=== PATIENT | female | born 2000 | race Caucasian/White ===

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

== ENCOUNTER → 2022-01-01 | Outpatient (CLI) | payer OTHER ==
--- NOTE | 2022-01-01 08:44 | US ---
EXAMINATION TYPE: US gallbladder DATE OF EXAM: 01/01/2022 COMPARISON: NONE CLINICAL HISTORY: R112 NAUSEA WITH VOMITING. EXAM MEASUREMENTS: Liver Length: 14.2 cm Gallbladder Wall: 0.2 cm CBD: 0.5 cm Right Kidney: 12.3 x 3.7 x 5.2 cm Pancreas: Tail obscured by overlying bowel gas, appears wnl as seen Liver: wnl Gallbladder: wnl Evidence for sonographic Arteaga's sign: No CBD: wnl Right Kidney: measures slightly large IMPRESSION: Within normal limits
--- NOTE | 2022-01-01 08:47 | US ---
EXAMINATION TYPE: US thyroid st tissue head/neck DATE OF EXAM: 01/01/2022 COMPARISON: NONE CLINICAL HISTORY: [id number] THYROTOXICOSIS. GLAND SIZE: Right Lobe: 7.2 x 1.8 x 2.2 cm Overall Parenchyma: heterogenous Left Lobe: 6.0 x 1.8 x 2.2 cm Overall Parenchyma: heterogeneous Isthmus Thickness: cm NODULES RIGHT: # of nodules measured on right: 0 LEFT: # of nodules measured on left: 0 ISTHMUS: # of nodules measured in the isthmus: 0 Bilateral neck scanned, no evidence of lymphadenopathy. IMPRESSION: Thyroidomegaly with glandular heterogeneity. No distinct nodularity seen.
== END | disposition home or self-care (01) ==
LOC: RADUSWWP 07:02
PROVIDERS: ATTEND Family Medicine
DX: R11.2 Nausea with vomiting, unspecified (principal); E05.90 Thyrotoxicosis, unspecified without thyrotoxic crisis or storm
CPT/HCPCS: 76536; 76705

== ENCOUNTER 2022-03-02 20:14 | Observation (INO) | payer OTHER ==
[2022-03-02] MEDS ORDERED: LORazepam 1 MG TAB PO STA (20:35)
--- NOTE | 2022-03-02 20:37 | ED ---
Chest Pain HPI - General Chief Complaint: Chest Pain Stated Complaint: SOB, chest pain Time Seen by Provider: 03/02/22 20:26 Source: patient, RN notes reviewed Mode of arrival: wheelchair Limitations: no limitations - History of Present Illness Initial Comments: Patient complaining of a squeezing chest pain to the left chest which is present for about 4 hours. Patient states she went to take a bath and developed the pain. Patient also states it feels like she cannot breathe. Patient does suffer from previous anxiety. Patient states she was doing okay prior to onset. No recent immobilization. No recent procedures or surgeries. No history of DVT or PE. Patient -control pills. No family history of cardiac disease or clotting disorders. She denied chance of . No headache, no fever or chills, no changes in vision or hearing, no sore throat or difficulty with speech, no neck pain, no abdominal pain, no nausea or vomiting, no changes in urination or bowel movements, no numbness or tingling, no extremity pain, no skin rashes or lesions. Past medical, surgical, social, and family history reviewed. - Related Data Home Medications Medication Instructions Recorded Confirmed Metoprolol Succinate (ER) [Toprol 50 mg PO DAILY 12/26/21 03/02/22 Xl] Allergies Allergy/AdvReac Type Severity Reaction Status Date / Time No Known Allergies Allergy Verified 03/02/22 21:34 Review of Systems ROS Statement: Those systems with pertinent positive or pertinent negative responses have been documented in the HPI. ROS Other: All systems not noted in ROS Statement are negative. EKG Findings - EKG Comments: EKG Findings:: Patient's EKG shows sinus tachycardia with a rate of 118. Normal intervals. Normal axis. Patient does have multiple flipped T waves, seen primarily in lead 3, aVF, V3, V4, V5, and to a lesser extent V6 . Normal QRS. No comparison study. Past Medical History Past Medical History: No Reported History, Thyroid Disorder History of Any Multi-Drug Resistant Organisms: None Reported Past Surgical History: Orthopedic Surgery Additional Past Surgical History / Comment(s): Right foot surgery Past Anesthesia/Blood Transfusion Reactions: No Reported Reaction Past Psychological History: Depression Smoking Status: Never smoker Past Alcohol Use History: None Reported Past Drug Use History: None Reported - Past Family History Mother Family Medical History: Asthma, Thyroid Disorder Additional Family Medical History / Comment(s): chronic back pain, anemia General Exam - General Exam Comments Initial Comments: Anxious-appearing 21-year-old female in moderate distress. Does not appear to be ill or toxic. Adequately hydrated. Capillary refill less than 2 seconds. Limitations: no limitations General appearance: alert, anxious, in distress Head exam: Present: atraumatic, normocephalic, normal inspection Eye exam: Present: normal appearance, PERRL, EOMI. Absent: scleral icterus, conjunctival injection, periorbital swelling ENT exam: Present: normal exam, normal oropharynx, mucous membranes moist, normal external ear exam. Absent: mucous membranes dry Neck exam: Present: normal inspection. Absent: tenderness, meningismus, lymphadenopathy Respiratory exam: Present: normal lung sounds bilaterally, chest wall tenderness. Absent: respiratory distress, wheezes, rales, rhonchi, stridor, accessory muscle use Cardiovascular Exam: Present: normal rhythm, tachycardia, normal heart sounds. Absent: regular rate, systolic murmur, diastolic murmur, rubs, gallop, clicks GI/Abdominal exam: Present: soft, normal bowel sounds. Absent: distended, tenderness, guarding, rebound, rigid Extremities exam: Present: normal inspection, full ROM, normal capillary refill. Absent: tenderness, pedal edema, joint swelling, calf tenderness Back exam: Present: normal inspection Neurological exam: Present: alert, oriented X3, CN II-XII intact Psychiatric exam: Present: normal affect, normal mood Skin exam: Present: warm, dry, intact, normal color. 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 Garcia from a [facility] for such admission of the patient for observation Chest Pain MDM - [facility] She presents with chest wall pain, tachycardia, anxiousness, most consistent with panic attack. However other etiology possible. We'll order an EKG, chest x-ray, will discuss with ED attending physician. Ativan order. Patient denies chance of . Patient's TSH is low, elevated T4. Patient shows evidence of thyrotoxicosis. Patient will be admitted for chest pain, sinus tachycardia, low magnesium and thyrotoxicosis. Discussed with sounds physician group. The case was discussed in detail with ED attending physician. Presentation, findings, treatment plan discussed in detail. Provides her Dr. Coleman Disposition Clinical Impression: Chest pain, Sinus tachycardia, Hypomagnesemia, Thyrotoxicosis Disposition: ADMITTED IP TO THIS HOSP Condition: Stable Time of Disposition: 22:48 Decision to Admit Reason: Admit from EC Decision Time: 22:48
[2022-03-02] MEDS ORDERED: SODIUM CHLORIDE 0.9% 1,000 ML IV STA (20:46)
[2022-03-02 21:13] LABS: Basophils % (A) 1 %; Eosinophils # (A) 0.1 k/uL (0-0.7); Eosinophils % (A) 2 %; HCT 36.9 % (34.0-46.0); HGB 12.6 gm/dL (11.4-16.0); Lymphocytes # (A) 1.6 k/uL (1.0-4.8); Lymphocytes % (A) 44 %; MCHC 34.1 g/dL (31.0-37.0); MCV 76.1 fL (80.0-100.0); Mean Platelet Volume 7.1; Microcytosis Slight; Monocytes # (A) 0.3 k/uL (0-1.0); Monocytes % (A) 7 %; Neutrophils # (A) 1.6 k/uL (1.3-7.7); Neutrophils % (A) 43 %; Platelet Count 239 k/uL (150-450); Poikilocytosis Slight; RBC 4.85 m/uL (3.80-5.40); RDW 15.5 % (11.5-15.5); WBC 3.7 k/uL (4.0-11.0)
[2022-03-02 21:36] LABS: ALT 21 U/L (4-34); African American GFR (CKD) >90 (>60 ml/min/1.73 sqM); Albumin 3.8 g/dL (3.5-5.0); Anion Gap 10 mmol/L; Blood Urea Nitrogen 11 mg/dL (7-17); Calcium 9.4 mg/dL (8.4-10.2); Carbon Dioxide 24 mmol/L (22-30); Chloride 103 mmol/L (98-107); Glucose 129 mg/dL (74-99); Non-African American GFR(CKD) >90 (>60 ml/min/1.73 sqM); Sodium 137 mmol/L (137-145); Total Bilirubin 0.6 mg/dL (0.2-1.3); Total Protein 6.9 g/dL (6.3-8.2)
[2022-03-02 21:45] LABS: AST 35 U/L (14-36); Alkaline Phosphatase 81 U/L (38-126); Magnesium 1.5 mg/dL (1.6-2.3); Potassium 3.8 mmol/L (3.5-5.1)
--- NOTE | 2022-03-02 21:57 | XR ---
EXAMINATION TYPE: XR chest 2V DATE OF EXAM: 03/02/2022 COMPARISON: 12/21/2021 HISTORY: Chest pain TECHNIQUE: 2 view FINDINGS: Heart and mediastinum are normal. Lungs are clear. Diaphragm is normal. Bony thorax is inta ct. IMPRESSION: Normal chest. No change.
[2022-03-02 22:46] LABS: T4, Free (Free Thyroxine) >6.99 ng/dL (0.78-2.19)
[2022-03-02] MEDS: MAGNESIUM SULFATE-D5W PMX 1 GM in DEXTROSE/WATER 1 100ML.BAG IVPB SCH (22:59)
[2022-03-02] MEDS ORDERED: ONDANSETRON 4 MG/2 ML VIAL IVP PRN (23:11)
[2022-03-02] MEDS ORDERED: NALOXONE 0.4 MG/ML 1 ML VIAL IV PRN (23:11)
[2022-03-02] MEDS ORDERED: ALPRAZolam 0.25 MG TAB PO PRN (23:11)
[2022-03-02] MEDS ORDERED: SODIUM CHLORIDE 0.9% 1,000 ML IV SCH (23:15)
[2022-03-02] MEDS ORDERED: METOPROLOL SUCCINATE (ER) 50 MG TAB.ER.24H PO SCH (23:44)
[2022-03-03] MEDS: MAGNESIUM SULFATE-D5W PMX 1 GM in DEXTROSE/WATER 1 100ML.BAG IVPB SCH (00:32)
[2022-03-03] MEDS: ACETAMINOPHEN TAB 325 MG TAB PO PRN ×2 (00:49→11:50)
--- NOTE | 2022-03-03 01:13 | P.HPIM ---
History of Present Illness H&P Date: 03/02/22 Chief Complaint: palpitations 21 year old female with hyperthyroidism , not compliant with meds patient comes in with complaint of palpitations and exercise intolerance. she was diagnosed with hyperthyroidism and started on treatment after delivering her first baby back in mar 2021, however, she admits being non compliant with her meds. she would experience frequent episodes of chest discomfrot and exercise intolerance, which has been getting worse over the past week. she reports episodes of palpitations, associated with sweating, feeling hot, and near syncope. it limits her from doing prolonged activities that are of moderate or more intense level. she also has noticed unintentional weight loss. denies any loose stools, or hair loss. denies any changes in vision. she denies any cardiac history , denies any recent travel or hospital stay , denies any URI symptoms, abd pain , or nausea or vomiting workup inthe ED showed CXR with no active disease. blood work showed thyrotoxicosis she recalls being on a beta dinah, and a thyroid medicine but does not r emember names Review of Systems Pertinent positives as noted in HPI. All other systems were reviewed and are negative Past Medical History Past Medical History: No Reported History, Thyroid Disorder History of Any Multi-Drug Resistant Organisms: None Reported Past Surgical History: Orthopedic Surgery Additional Past Surgical History / Comment(s): Right foot surgery Past Anesthesia/Blood Transfusion Reactions: No Reported Reaction Past Psychological History: Depression Smoking Status: Never smoker Past Alcohol Use History: None Reported Past Drug Use History: None Reported - Past Family History Mother Family Medical History: Asthma, Thyroid Disorder Additional Family Medical History / Comment(s): chronic back pain, anemia Medications and Allergies Home Medications Medication Instructions Recorded Confirmed Type Metoprolol Succinate (ER) [Toprol 50 mg PO DAILY 12/26/21 03/02/22 History Xl] Allergies Allergy/AdvReac Type Severity Reaction Status Date / Time No Known Allergies Allergy Verified 03/02/22 21:34 Physical Exam Vitals: Vital Signs Temp Pulse Pulse Resp BP Pulse Ox 03/03/22 00:07 125 H 03/02/22 21:11 116 H 116 H 97 03/02/22 20:17 98.4 F 123 H 18 146/86 98 Intake and Output 03/02/22 03/02/22 03/03/22 14:59 22:59 06:59 Other: Weight 72.121 kg Constitutional: No acute distress, conversant, pleasant Eyes: Anicteric sclerae, moist conjunctiva, Pupils equal round reactive to light ENMT: NC/AT Oropharynx clear, no erythema, or exudates Neck: Supple, no masses, or JVD No carotid bruits +ve thyromegaly Lungs: Clear to auscultation Clear to percussion Normal respiratory effort, no accessory muscle use Cardiovascular: tachycardia, normaal S1 S2, No murmurs, gallops, or rubs No peripheral edema Abdominal: Soft Nontender, no guarding, rebound or rigidity Abdomen moving with respiration Normoactive bowel sounds No hepatomegaly, No splenomegaly No palpable mass No abdominal wall hernia noted Skin: Normal temperature, tone, texture, turgor No induration No subcutaneous nodules No rash, lesions No ulcers Extremities: No digital cyanosis No clubbing Pedal pulses intact and symmetrical Radial pulses intact and symmetrical No calf tenderness Psychiatric: Alert and oriented to person, place and time Appropriate affect fair judgement Neuro Muscles Strength 5/5 in all 4 extremities Sensation to light touch grossly present throughout Cranial nerves II-XII grossly intact No focal sensory deficits Lymphatics: no palpable cervical or supraclavicular , or inguinal lymph nodes Results CBC & Chem 7: 03/02/22 21:05 03/02/22 21:05 Labs: Abnormal Lab Results - Last 24 Hours (Table) 03/02/22 03/02/22 Range/Units 21:05 21:05 WBC 3.7 L (4.0-11.0) k/uL MCV 76.1 L (80.0-100.0) fL Creatinine 0.31 L (0.52-1.04) mg/dL Glucose 129 H (74-99) mg/dL Magnesium 1.5 L (1.6-2.3) mg/dL TSH <0.015 L (0.465-4.680) mIU/L Free T4 >6.99 H (0.78-2.19) ng/dL Assessment and Plan Assessment: sinus tachycardia 2/2 thyrotoxicosis thyrotoxicosis initiate atenolol patient to bring home medications list as she recalls being on some thyroid medicine discussed with patient therapy options, methimazole, radioactive iodine and surgery , will await her meds list as she wants to continue her home meds check radioactive iodine uptake to determine Graves vs toxic nodule IVF hydration with normal saline check lipid profile denies any illicit drugs or excessive caffeine intake urine bHCG negative DVT PPX mechanical full code
[2022-03-03] MEDS: atenoloL 50 MG TAB PO SCH ×2 (02:57→10:46)
[2022-03-03 03:32] LABS: HCT 35.9 % (34.0-46.0); HGB 11.7 gm/dL (11.4-16.0); MCH 25.1 pg (25.0-35.0); MCHC 32.5 g/dL (31.0-37.0); MCV 77.4 fL (80.0-100.0); Mean Platelet Volume 7.5; Microcytosis Slight; Platelet Count 200 k/uL (150-450); Poikilocytosis Slight; RBC 4.64 m/uL (3.80-5.40); RDW 15.4 % (11.5-15.5); WBC 3.1 k/uL (4.0-11.0)
[2022-03-03 03:43] LABS: African American GFR (CKD) >90 (>60 ml/min/1.73 sqM); Anion Gap 8 mmol/L; Blood Urea Nitrogen 11 mg/dL (7-17); Calcium 9.1 mg/dL (8.4-10.2); Carbon Dioxide 22 mmol/L (22-30); Chloride 105 mmol/L (98-107); Glucose 100 mg/dL (74-99); Magnesium 1.9 mg/dL (1.6-2.3); Non-African American GFR(CKD) >90 (>60 ml/min/1.73 sqM); Potassium 3.7 mmol/L (3.5-5.1); Sodium 135 mmol/L (137-145)
[2022-03-03 04:16] LABS: Lymphocytes # (M) 1.89 k/uL (1.0-4.8); Monocytes # (M) 0.34 k/uL (0-1.0); Neutrophils # (M) 0.87 k/uL (1.3-7.7); Neutrophils % (M) 28 %; Nucleated Red Blood Cells 0 /100 WBC (0-0); Total Cells Counted 100
[2022-03-03] MEDS ORDERED: METOPROLOL SUCCINATE (ER) 50 MG TAB.ER.24H PO SCH (09:00)
[2022-03-03 09:04] LABS: Chol/HDL Ratio 2.24 Ratio; VLDL Calculation 17.64 mg/dL (5.00-40.00)
[2022-03-03] MEDS ORDERED: methIMAzole 5 MG TAB PO SCH (09:30)
[2022-03-03 10:04] VITALS: RESP 18
[2022-03-03 13:48] VITALS: BP 126/71; TEMP 98
[2022-03-03 14:16] VITALS: BMI 26.4
[2022-03-03 14:34] VITALS: PULSE 100
--- NOTE | 2022-03-03 14:46 | P.DS ---
Providers Date of admission: 03/02/22 22:47 Expected date of discharge: 03/03/22 Attending physician: Timoteo Garcia MD Primary care physician: Edi Pennington Hospital Course: Discharge Diagnosis: Sinus tachycardia secondary to thyrotoxicosis Thyrotoxicosis, patient to continue Methimazole and metoprolol Hypomagnesemia, resolved Hospital Course: Patient is a 21-year-old female with a past medical history of hyperthyroidism. Patient reports stopping taking her medications Methimazole and metoprolol approximately one week ago or so. She presented to the emergency department with a chief complaint of palpitations. Patient was noted to have sinus tachycardia. EKG completed revealing sinus tachycardia at 118 bpm. CBC and CMP were completed showing no significant abnormalities. Magnesium was 1.5 and replaced. Troponin less than 0.012 and d-dimer also negative at 0.38. TSH undetectable less than 0.015 and free T4 greater than 6.99. Urine hCG was negative. Patient was admitted under our services and monitored overnight. Patient placed back on beta dinah and methimazole troponins were trended overnight all negative at less than 0.0123 draws. Repeat magnesium showing resolution of hypomagnesemia with magnesium of 1.9.. Heart rate stable at 100 bpm and 126 with ambulation. Patient educated on the importance of medication compliance and risks of continued noncompliance up to and including . Patient is medically stable for discharge at this time and instructed she will need to resume Methimazole and metoprolol as previously prescribed. No adjustments made to medications at this time as it is unclear when the last time patient actually took these medications as directed. Patient instructed she will need to follow up closely outpatient with her PCP in 2 days and to be evaluated by an sulfur chloride operator. Patient verbalized understanding of discharge instructions and medically stable for discharge at this time. Physical examination: Patient seen and examined at bedside. Vital signs reviewed and stable. General: Nontoxic, no distress and appears stated age. Derm: Skin warm and dry, normal coloration for ethnicity. Head: Atraumatic, normocephalic and symmetric. Eyes: EOMs intact, no lid lag, and anicteric sclera Mouth: no lip lesions, mucus membranes moist Cardiovascular: Tachycardic rate and regular rhythm with normal S1S2, no murmur, positive posterior tibial pulses bilaterally, and cap refill < 2 seconds. Lungs: Respirations even, regular, and unlabored on room air. Lungs CTA bilaterally, no rhonchi, no rales, no wheezing, and no accessory muscle usage. Abdominal: soft, nontender to palpation, no guarding, no appreciable organomegaly Ext: ROM intact. No gross muscle atrophy, no edema, no contractures Neuro: Speech clear, face symmetrical and CN II-XII grossly intact with no noted focal neuro deficits Psych: Alert and oriented to person, place, time, and situation. Appropriate and pleasant affect. A total of 37 minutes of time were spent preparing this complex discharge summary. Pt was discharged on 03/03/22 at 2:36 PM. Patient Condition at Discharge: Stable Plan - Discharge Summary New Discharge Prescriptions: Continue Metoprolol Succinate (ER) [Toprol XL] 50 mg PO DAILY methIMAzole 10 mg PO DAILY Discharge Medication List Metoprolol Succinate (ER) [Toprol XL] 50 mg PO DAILY 12/26/21 [History] methIMAzole 10 mg PO DAILY 03/03/22 [History] Follow up Appointment(s)/Referral(s): Edi Pennington MD [Primary Care Provider] - 1-2 days Nuris Jenkins MD [STAFF PHYSICIAN] - 1 Week Activity/Diet/Wound Care/Special Instructions: Activity: As tolerated. Diet: Regular diet. Special Instructions: Take all of your medications as directed and remember to keep all of your doctor's appointments and follow-up as needed. It is of utmost importance for you to continue taking your Methimazole and metoprolol as previously prescribed, I understand that you stopped taking taking these medications at home, however as we discussed stopping these medications can lead to detrimental health conditions up to and including . You will need to follow up with your primary care doctor, Dr. Pennington in 2 days for further evaluation. You will need to undergo close monitoring and repeat labs as directed. It is also strongly advised also as we discussed that you see an sulfur chloride operator which is a specialist in dealing with endocrine/thyroid function. Thank you for allowing us to participate in your care, it was truly a pleasure having you for our patient!!! Discharge Disposition: HOME SELF-CARE
== END 2022-03-03 15:37 | disposition home or self-care (01) ==
LOC: EC 20:14 → 6NMEDSUR 22:47
PROVIDERS: ADMIT Internal Medicine; ATTEND Internal Medicine
DX: E05.90 Thyrotoxicosis, unspecified without thyrotoxic crisis or storm (principal); R00.0 Tachycardia, unspecified; E83.42 Hypomagnesemia; F41.9 Anxiety disorder, unspecified; F32.A Depression, unspecified; R07.89 Other chest pain; Z82.5 Family history of asthma and other chronic lower respiratory diseases; Z83.2 Family history of diseases of the blood and blood-forming organs and certain disorders involving the immune mechanism; Z91.14 Patient's other noncompliance with medication regimen; Z32.02 Encounter for pregnancy test, result negative
CPT/HCPCS: 96366; 96361; 96365; 99285; 36415; 93005; 85379; 84439; 80061; 80053; 80048; 84443; 83735 ×2; 84484 ×2; 85025 ×2; 81025; 71046; G0378 ×2; J3475 ×2

== ENCOUNTER 2022-06-07 14:20 | Observation (INO) | payer OTHER ==
[2022-06-07 16:32] LABS: Basophils % (A) 1 %; Eosinophils # (A) 0.1 k/uL (0-0.7); Eosinophils % (A) 1 %; HCT 37.1 % (34.0-46.0); HGB 13.4 gm/dL (11.4-16.0); Lymphocytes # (A) 2.2 k/uL (1.0-4.8); Lymphocytes % (A) 35 %; MCH 27.9 pg (25.0-35.0); MCV 77.6 fL (80.0-100.0); Mean Platelet Volume 7.5; Monocytes # (A) 0.3 k/uL (0-1.0); Monocytes % (A) 5 %; Neutrophils # (A) 3.5 k/uL (1.3-7.7); Neutrophils % (A) 57 %; Platelet Count 218 k/uL (150-450); Poikilocytosis Slight; RBC 4.78 m/uL (3.80-5.40); RDW 13.8 % (11.5-15.5); WBC 6.1 k/uL (4.0-11.0)
[2022-06-07 16:42] LABS: Potassium 3.9 mmol/L (3.5-5.1)
[2022-06-07 16:43] LABS: ALT 18 U/L (4-34); AST 22 U/L (14-36); African American GFR (CKD) >90 (>60 ml/min/1.73 sqM); Albumin 3.6 g/dL (3.5-5.0); Alkaline Phosphatase 114 U/L (38-126); Anion Gap 7 mmol/L; Blood Urea Nitrogen 7 mg/dL (7-17); Calcium 9.1 mg/dL (8.4-10.2); Carbon Dioxide 24 mmol/L (22-30); Chloride 106 mmol/L (98-107); Glucose 127 mg/dL (74-99); Magnesium 1.5 mg/dL (1.6-2.3); Non-African American GFR(CKD) >90 (>60 ml/min/1.73 sqM); Sodium 137 mmol/L (137-145); Total Bilirubin 0.7 mg/dL (0.2-1.3); Total Protein 6.4 g/dL (6.3-8.2)
[2022-06-07 16:44] LABS: Partial Thromboplastin Time 24.5 sec (22.0-30.0); Prothrombin Time 11.3 sec (9.0-12.0)
[2022-06-07 17:13] LABS: Appearance,Urine Clear (Clear); Bilirubin,Urine Negative (Negative); Blood,Urine Negative (Negative); Color,Urine Yellow; Glucose,Urine (UA) Negative (Negative); Ketones,Urine Negative (Negative); Leukocyte Esterase,Urine Negative (Negative); Nitrite,Urine Negative (Negative); Protein,Urine Negative (Negative); Specific Gravity,Urine 1.016 (1.001-1.035)
[2022-06-07 17:25] LABS: Amphetamine Screen,Urine Not Detected (NotDetected); Barbiturate Screen,Urine Not Detected (NotDetected); Benzodiazepines Screen,Urine Not Detected (NotDetected); Cocaine Screen,Urine Not Detected (NotDetected); Methadone Screen, Urine Not Detected (NotDetected); Opiate Screen,Urine Not Detected (NotDetected); Oxycodone Screen, Urine Not Detected (NotDetected); Phencyclidine Screen,Urine Not Detected (NotDetected); Tricyclic Antidepressant,Urine Not Detected (NotDetected); Urn Cannabinoid Scrn Not Detected (NotDetected)
--- NOTE | 2022-06-07 17:43 | XR ---
EXAMINATION TYPE: XR chest 2V DATE OF EXAM: 06/07/2022 COMPARISON: NONE HISTORY: 03/02/2022 TECHNIQUE: 2 views FINDINGS: Heart and mediastinum are normal. Lungs are clear. Diaphragm is normal. Bony thorax is inta ct. There are chest leads. IMPRESSION: Normal chest. No change.
[2022-06-07 17:58] LABS: T4, Free (Free Thyroxine) 6.06 ng/dL (0.78-2.19)
[2022-06-07] MEDS: MAGNESIUM SULFATE-D5W PMX 1 GM in DEXTROSE/WATER 1 100ML.BAG IVPB SCH ×2 (18:32→19:23)
[2022-06-07] MEDS ORDERED: METOPROLOL SUCCINATE (ER) 50 MG TAB.ER.24H PO STA (19:12)
[2022-06-07] MEDS ORDERED: NALOXONE 0.4 MG/ML 1 ML VIAL IV PRN (19:16)
--- NOTE | 2022-06-07 19:16 | ED ---
Arrhythmia/Palpitations HPI - General Chief Complaint: Arrhythmia/Palpitations Stated Complaint: High heart rate, dizzy Time Seen by Provider: 06/07/22 15:15 Source: patient Mode of arrival: ambulatory Limitations: no limitations - History of Present Illness Initial Comments: 22-year-old female with past medical history of hyperthyroid [facility]. States that she has had palpitations for the past several months. Also complains of chest pain. I reviewed the patient's history and she does have a history of hyperthyroid. States that she is unsure when the last time she took her medications. Stepmother's at bedside and is unaware of her medical conditions. Patient reports that she didn't like to take the metoprolol because it made her feel funny. States that she has had anxiety, sweating and palpitations. Denies history of cardiac disease. Admits to nausea without vomiting. No other alleviating, precipitating or modifying factors - Related Data Previous Rx's Medication Instructions Recorded Metoprolol Succinate [Metoprolol 50 mg PO DAILY #30 tab 06/08/22 Succinate ER] methIMAzole 10 mg PO DAILY #30 tablet 06/08/22 Allergies Allergy/AdvReac Type Severity Reaction Status Date / Time latex AdvReac Rash/Hives Verified 06/07/22 20:01 Review of Systems ROS Statement: Those systems with pertinent positive or pertinent negative responses have been documented in the HPI. ROS Other: All systems not noted in ROS Statement are negative. Past Medical History Past Medical History: No Reported History, Thyroid Disorder History of Any Multi-Drug Resistant Organisms: None Reported Past Surgical History: Orthopedic Surgery Additional Past Surgical History / Comment(s): Right foot surgery Past Anesthesia/Blood Transfusion Reactions: No Reported Reaction Past Psychological History: Depression Smoking Status: Vaper Past Alcohol Use History: None Reported Past Drug Use History: None Reported - Past Family History Mother Family Medical History: Asthma, Thyroid Disorder Additional Family Medical History / Comment(s): chronic back pain, anemia General Exam Limitations: no limitations General appearance: alert, in no apparent distress Head exam: Present: atraumatic, normocephalic, normal inspection Eye exam: Present: normal appearance, PERRL, EOMI. Absent: scleral icterus, conjunctival injection, periorbital swelling ENT exam: Present: normal exam, mucous membranes moist Neck exam: Present: normal inspection. Absent: tenderness, meningismus, lymphadenopathy Respiratory exam: Present: normal lung sounds bilaterally. Absent: respiratory distress, wheezes, rales, rhonchi, stridor Cardiovascular Exam: Present: normal rhythm, tachycardia, normal heart sounds. Absent: systolic murmur, diastolic murmur, rubs, gallop, clicks GI/Abdominal exam: Present: soft, normal bowel sounds. Absent: distended, tenderness, guarding, rebound, rigid Extremities exam: Present: normal inspection, full ROM, normal capillary refill. Absent: tenderness, pedal edema, joint swelling, calf tenderness Back exam: Present: normal inspection Neurological exam: Present: alert, oriented X3, CN II-XII intact Psychiatric exam: Present: normal affect, normal mood Skin exam: Present: warm, dry, intact, normal color. Absent: rash Course Vital Signs 06/07/22 06/07/22 06/07/22 14:23 16:06 18:12 Temperature 98.2 F Pulse Rate 143 H 120 H 121 H Respiratory 20 22 20 Rate Blood Pressure 127/85 138/82 131/71 O2 Sat by Pulse 99 97 97 Oximetry 06/07/22 19:24 Temperature 97.6 F Pulse Rate 118 H Respiratory 16 Rate Blood Pressure 124/67 O2 Sat by Pulse 98 Oximetry EKG Findings - EKG Comments: EKG Findings:: EKG demonstrates sinus tachycardia with a rate of 126. ME interval 144. QRS 90. QTC 410. No acute ST segment elevations or depressions. EKG was interpreted by myself Medical Decision Making - Medical Decision Making Upon arrival patient is placed in room 20. Patient has high heart rate of 143. She is placed on continuous pulse ox and cardiac monitoring. 12 lead EKG is performed which demonstrates a sinus tachycardia. IV is established and laboratory studies are conducted. Magnesium low at 1.4. Free T4 6.06. Chest x-ray demonstrates no acute findings. Patient has thyrotoxicosis at this time. Recommended admission. Spoke with Dr. Douglass who agreed to admit the patient - Lab Data Result diagrams: 06/08/22 07:16 06/08/22 07:16 Lab Results 06/07/22 06/07/22 06/07/22 Range/Units 16:15 16:15 16:15 WBC 6.1 (4.0-11.0) k/uL RBC 4.78 (3.80-5.40) m/uL Hgb 13.4 (11.4-16.0) gm/dL Hct 37.1 (34.0-46.0) % MCV 77.6 L (80.0-100.0) fL MCH 27.9 (25.0-35.0) pg MCHC 36.0 (31.0-37.0) g/dL RDW 13.8 (11.5-15.5) % Plt Count 218 (150-450) k/uL MPV 7.5 Neutrophils % 57 % Lymphocytes % 35 % Monocytes % 5 % Eosinophils % 1 % Basophils % 1 % Neutrophils # 3.5 (1.3-7.7) k/uL Lymphocytes # 2.2 (1.0-4.8) k/uL Monocytes # 0.3 (0-1.0) k/uL Eosinophils # 0.1 (0-0.7) k/uL Basophils # 0.0 (0-0.2) k/uL Poikilocytosis Slight PT 11.3 (9.0-12.0) sec INR 1.0 (<1.2) APTT 24.5 (22.0-30.0) sec Sodium (137-145) mmol/L Potassium (3.5-5.1) mmol/L Chloride (98-107) mmol/L Carbon Dioxide (22-30) mmol/L Anion Gap mmol/L BUN (7-17) mg/dL Creatinine (0.52-1.04) mg/dL Est GFR (CKD-EPI)AfAm (>60 ml/min/1.73 sqM) Est GFR (CKD-EPI)NonAf (>60 ml/min/1.73 sqM) Glucose (74-99) mg/dL Calcium (8.4-10.2) mg/dL Magnesium (1.6-2.3) mg/dL Total Bilirubin (0.2-1.3) mg/dL AST (14-36) U/L ALT (4-34) U/L Alkaline Phosphatase (38-126) U/L Troponin I (0.000-0.034) ng/mL Total Protein (6.3-8.2) g/dL Albumin (3.5-5.0) g/dL TSH (0.465-4.680) mIU/L Free T4 (0.78-2.19) ng/dL Urine Color Yellow Urine Appearance Clear (Clear) Urine pH 7.0 (5.0-8.0) Ur Specific Gipsy 1.016 (1.001-1.035) Urine Protein Negative (Negative) Urine Glucose (UA) Negative (Negative) Urine Ketones Negative (Negative) Urine Blood Negative (Negative) Urine Nitrite Negative (Negative) Urine Bilirubin Negative (Negative) Urine Urobilinogen 2.0 (<2.0) mg/dL Ur Leukocyte Esterase Negative (Negative) Urine HCG, Qual (Not Detectd) Urine Opiates Screen Not Detected (NotDetected) Ur Oxycodone Screen Not Detected (NotDetected) Urine Methadone Screen Not Detected (NotDetected) Ur Propoxyphene Screen Not Detected (NotDetected) Ur Barbiturates Screen Not Detected (NotDetected) U Tricyclic Antidepress Not Detected (NotDetected) Ur Phencyclidine Scrn Not Detected (NotDetected) Ur Amphetamines Screen Not Detected (NotDetected) U Methamphetamines Scrn Not Detected (NotDetected) U Benzodiazepines Scrn Not Detected (NotDetected) Urine Cocaine Screen Not Detected (NotDetected) U Marijuana (THC) Screen Not Detected (NotDetected) 06/07/22 06/07/22 06/07/22 Range/Units 16:15 16:15 16:15 WBC (4.0-11.0) k/uL RBC (3.80-5.40) m/uL Hgb (11.4-16.0) gm/dL Hct (34.0-46.0) % MCV (80.0-100.0) fL MCH (25.0-35.0) pg MCHC (31.0-37.0) g/dL RDW (11.5-15.5) % Plt Count (150-450) k/uL MPV Neutrophils % % Lymphocytes % % Monocytes % % Eosinophils % % Basophils % % Neutrophils # (1.3-7.7) k/uL Lymphocytes # (1.0-4.8) k/uL Monocytes # (0-1.0) k/uL Eosinophils # (0-0.7) k/uL Basophils # (0-0.2) k/uL Poikilocytosis PT (9.0-12.0) sec INR (<1.2) APTT (22.0-30.0) sec Sodium 137 (137-145) mmol/L Potassium 3.9 (3.5-5.1) mmol/L Chloride 106 (98-107) mmol/L Carbon Dioxide 24 (22-30) mmol/L Anion Gap 7 mmol/L BUN 7 (7-17) mg/dL Creatinine 0.29 L (0.52-1.04) mg/dL Est GFR (CKD-EPI)AfAm >90 (>60 ml/min/1.73 sqM) Est GFR (CKD-EPI)NonAf >90 (>60 ml/min/1.73 sqM) Glucose 127 H (74-99) mg/dL Calcium 9.1 (8.4-10.2) mg/dL Magnesium 1.5 L (1.6-2.3) mg/dL Total Bilirubin 0.7 (0.2-1.3) mg/dL AST 22 (14-36) U/L ALT 18 (4-34) U/L Alkaline Phosphatase 114 (38-126) U/L Troponin I <0.012 (0.000-0.034) ng/mL Total Protein 6.4 (6.3-8.2) g/dL Albumin 3.6 (3.5-5.0) g/dL TSH <0.015 L (0.465-4.680) mIU/L Free T4 6.06 H (0.78-2.19) ng/dL Urine Color Urine Appearance (Clear) Urine pH (5.0-8.0) Ur Specific Gipsy (1.001-1.035) Urine Protein (Negative) Urine Glucose (UA) (Negative) Urine Ketones (Negative) Urine Blood (Negative) Urine Nitrite (Negative) Urine Bilirubin (Negative) Urine Urobilinogen (<2.0) mg/dL Ur Leukocyte Esterase (Negative) Urine HCG, Qual Not Detected (Not Detectd) Urine Opiates Screen (NotDetected) Ur Oxycodone Screen (NotDetected) Urine Methadone Screen (NotDetected) Ur Propoxyphene Screen (NotDetected) Ur Barbiturates Screen (NotDetected) U Tricyclic Antidepress (NotDetected) Ur Phencyclidine Scrn (NotDetected) Ur Amphetamines Screen (NotDetected) U Methamphetamines Scrn (NotDetected) U Benzodiazepines Scrn (NotDetected) Urine Cocaine Screen (NotDetected) U Marijuana (THC) Screen (NotDetected) Disposition Clinical Impression: Thyrotoxicosis, Chest pain, Sinus tachycardia, Hypomagnesemia Disposition: ADMITTED IP TO THIS [facility] Condition: Stable Is patient prescribed a controlled substance at d/c from ED?: No Time of Disposition: 19:16 Decision to Admit Reason: Admit from EC Decision Date: 06/07/22 Decision Time: 19:16
[2022-06-08 00:41] VITALS: RESP 16
--- NOTE | 2022-06-08 04:02 | P.HPIM ---
History of Present Illness H&P Date: 06/07/22 Chief Complaint: Palpitations 22-year-old female with hyperthyroidism She admits to previous diagnosis of hyperthyroidism however she is not compliant with her medications she hasn't been taking them for many months She describes symptoms of palpitations, exercise intolerance, weight loss significant, denies any diarrhea denies abdominal pain denies difficulty swallowing or breathing denies any recent viral illnesses denies any chest pain or trouble breathing. Patient denies any recent travel or hospital stay. Blood work showed microcytosis without anemia, RDW normal. Hypomagnesemia 1.5 Elevated free T4, very low TSH Patient denies any street drugs or alcohol abuse. She admits to vaping Review of Systems Pertinent positives as noted in HPI. All other systems were reviewed and are negative Past Medical History Past Medical History: Thyroid Disorder History of Any Multi-Drug Resistant Organisms: None Reported Past Surgical History: Orthopedic Surgery Additional Past Surgical History / Comment(s): Right foot surgery Past Anesthesia/Blood Transfusion Reactions: No Reported Reaction Past Psychological History: Depression Smoking Status: Vaper Past Alcohol Use History: None Reported Past Drug Use History: None Reported - Past Family History Mother Family Medical History: Asthma, Thyroid Disorder Additional Family Medical History / Comment(s): chronic back pain, anemia Medications and Allergies Home Medications Medication Instructions Recorded Confirmed Type No Known Home Medications 06/07/22 06/07/22 History Allergies Allergy/AdvReac Type Severity Reaction Status Date / Time latex AdvReac Rash/Hives Verified 06/07/22 20:01 Physical Exam Vitals: Vital Signs Temp Pulse Resp BP Pulse Ox 06/07/22 19:24 97.6 F 118 H 16 124/67 98 06/07/22 18:12 121 H 20 131/71 97 06/07/22 16:06 120 H 22 138/82 97 06/07/22 14:23 98.2 F 143 H 20 127/85 99 Intake and Output 06/07/22 06/07/22 06/07/22 06:59 14:59 22:59 Other: Weight 63.503 kg Constitutional: No acute distress, conversant, pleasant Eyes: Anicteric sclerae, moist conjunctiva, Pupils equal round reactive to light ENMT: NC/AT Oropharynx clear, no erythema, or exudates Neck: Supple,, palpable thyroid gland no palpable nodules No carotid bruits No thyromegaly Lungs: Clear to auscultation Clear to percussion Normal respiratory effort, no accessory muscle use Cardiovascular: Heart tachycardia, No murmurs, gallops, or rubs No peripheral edema Abdominal: Soft Nontender, no guarding, rebound or rigidity Abdomen moving with respiration Normoactive bowel sounds No hepatomegaly, No splenomegaly No palpable mass No abdominal wall hernia noted Skin: Skin is warm to the touch otherwise unremarkable Extremities: No digital cyanosis No clubbing Pedal pulses intact and symmetrical Radial pulses intact and symmetrical No calf tenderness Psychiatric: Alert and oriented to person, place and time Appropriate affect fair judgement Neuro Muscles Strength 5/5 in all 4 extremities Sensation to light touch grossly present throughout Cranial nerves II-XII grossly intact Lymphatics: no palpable cervical or supraclavicular lymph nodes Results CBC & Chem 7: 06/07/22 16:15 06/07/22 16:15 Labs: Abnormal Lab Results - Last 24 Hours (Table) 06/07/22 06/07/22 Range/Units 16:15 16:15 MCV 77.6 L (80.0-100.0) fL Creatinine 0.29 L (0.52-1.04) mg/dL Glucose 127 H (74-99) mg/dL Magnesium 1.5 L (1.6-2.3) mg/dL TSH <0.015 L (0.465-4.680) mIU/L Free T4 6.06 H (0.78-2.19) ng/dL Assessment and Plan Assessment: Thyrotoxicosis Tachycardia Patient initiated on methimazole, metoprolol Counseled to follow up closely on CBC for side effect of a granulocytosis counseled to follow up outpatient with endocrinology for further workup and management plan Monitor vital signs 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
[2022-06-08 06:00] VITALS: BP 97/54; PULSE 111; TEMP 97.9
[2022-06-08] MEDS ORDERED: METOPROLOL SUCCINATE (ER) 50 MG TAB.ER.24H PO SCH (09:00)
[2022-06-08] MEDS ORDERED: methIMAzole 5 MG TAB PO SCH (09:00)
[2022-06-08 11:11] LABS: Basophils # (A) 0.03 X 10*3/uL (0.00-0.10); Basophils % (A) 0.5 %; Eosinophils # (A) 0.18 X 10*3/uL (0.04-0.35); Eosinophils % (A) 3.2 %; HCT 37.7 % (37.2-46.3); HGB 12.4 g/dL (12.0-15.0); Immature Grans, Automated 0.2 %; Lymphocytes # (A) 2.52 X 10*3/uL (0.90-5.00); Lymphocytes % (A) 44.7 %; MCH 26.3 pg (27.0-32.0); MCHC 32.9 g/dL (32.0-37.0); Mean Platelet Volume 9.8 fL (9.5-12.2); Monocytes # (A) 0.53 X 10*3/uL (0.20-1.00); Monocytes % (A) 9.4 %; NRBC Per 100 WBC 0 /100 WBCS (0.0-0.0); Neutrophils # (A) 2.37 X 10*3/uL (1.80-7.70); Platelet Count 226 X 10*3/uL (140-440); RBC 4.71 X 10*6/uL (4.10-5.20); RDW 14.1 % (11.5-14.5); WBC 5.64 X 10*3/uL (4.50-10.00)
[2022-06-08 11:13] LABS: BUN/Creat Ratio 28.67 Ratio (12.00-20.00); Blood Urea Nitrogen 8.6 mg/dL (9.0-27.0); Calcium 9.5 mg/dL (8.7-10.3); Magnesium 1.7 mg/dL (1.5-2.4); Non-African American GFR(CKD) 164.8 (60.0-200.0); Potassium 4.1 mmol/L (3.5-5.5)
--- NOTE | 2022-06-08 13:10 | P.DS ---
Providers Date of admission: 06/07/22 19:16 Expected date of discharge: 06/08/22 Attending physician: Ilia Douglass MD Primary care physician: Edi Pennington Hospital Course: Discharge Diagnosis: Thyrotoxicosis Sinus tachycardia Microcytosis without anemia Hospital Course: 22-year-old with known history of hyperthyroidism presenting with symptoms of palpitations, exercise intolerance, weight loss, and diarrhea. Patient is noncompliant with her medications. On admission, patient was tachycardic up to 143. Rest of the vitals signs were otherwise normal. Laboratory workup showed microcytosis without anemia, magnesium of 1.5, TSH <0.015, free T4 6.06. Urine toxicology was negative. Patient was started on metoprolol and methimazole. At discharge, her symptoms of palpitations have improved, heart rate was 109. She will have a close follow-up with PCP and possibly endocrinology for further hyperthyroidism management. Patient seen and examined at bedside. Vital signs reviewed and stable. General: nontoxic, no distress, appears at stated age Derm: warm, dry Head: atraumatic, normocephalic, symmetric Eyes: EOMI, no lid lag, anicteric sclera Mouth: no lip lesion, mucus membranes moist Cardiovascular: S1S2 reg, tachycardic, no murmur Lungs: CTA bilateral, no rhonchi, no rales , no accessory muscle use Abdominal: soft, nontender to palpation, no guarding, no appreciable organomegaly Ext: no gross muscle atrophy, no edema, no contractures Neuro: CN II-XI grossly intact, no focal neuro deficits Psych: Alert, oriented, appropriate affect A total of 38 minutes of time were spent preparing this complex discharge summary. Patient was discharged on 06/08/22 at 10:22. Patient Condition at Discharge: Stable Plan - Discharge Summary New Discharge Prescriptions: New methIMAzole 10 mg PO DAILY #30 tablet Metoprolol Succinate [Metoprolol Succinate ER] 50 mg PO DAILY #30 tab Discharge Medication List Metoprolol Succinate [Metoprolol Succinate ER] 50 mg PO DAILY #30 tab 06/08/22 [Rx] methIMAzole 10 mg PO DAILY #30 tablet 06/08/22 [Rx] Follow up Appointment(s)/Referral(s): Edi Pennington MD [Primary Care Provider] - 1-2 days Patient Instructions/Handouts: Hyperthyroidism (DC), Tachycardia (GEN) Activity/Diet/Wound Care/Special Instructions: Please see your PCP as soon as possible. Please take your medications. You may need exhauster for further thyroid disease management. Discharge Disposition: HOME SELF-CARE
== END 2022-06-08 11:51 | disposition home or self-care (01) ==
LOC: EC 14:20 → 6NMEDSUR 19:16
PROVIDERS: ADMIT Student in an Organized Health Care Education/Training Program; ATTEND Student in an Organized Health Care Education/Training Program
DX: E05.90 Thyrotoxicosis, unspecified without thyrotoxic crisis or storm (principal); E83.42 Hypomagnesemia; R71.8 Other abnormality of red blood cells; F32.A Depression, unspecified; Z79.899 Other long term (current) drug therapy; Z91.040 Latex allergy status; Z82.5 Family history of asthma and other chronic lower respiratory diseases; Z83.2 Family history of diseases of the blood and blood-forming organs and certain disorders involving the immune mechanism; Z32.02 Encounter for pregnancy test, result negative; Z91.14 Patient's other noncompliance with medication regimen
CPT/HCPCS: 96366 ×2; 96365; 99285; 36415; 93005; 84439; 80053; 80048; 84443; 83735 ×2; 84484; 85025 ×2; 85610; 85730; 81003; 81025; 80306; 71046; G0378 ×2; J3475

== ENCOUNTER 2022-10-26 00:32 | Emergency (ER) | payer OTHER ==
[2022-10-26 00:57] VITALS: TEMP 97.8
[2022-10-26 01:11] VITALS: BP 123/75; PULSE 51; RESP 18
[2022-10-26] MEDS ORDERED: FAMOTIDINE 20 MG/2 ML VIAL IV STA (01:18)
[2022-10-26] MEDS ORDERED: diphenhydrAMINE 50 MG/ML 1 ML VIAL IVP STA (01:18)
--- NOTE | 2022-10-26 02:46 | ED ---
Allergic Reaction HPI - General Chief complaint: Allergic Reaction Stated complaint: Allergic reaction, Eye swelling, Difficulty swallo Time Seen by Provider: 10/26/22 01:06 Source: patient, family Mode of arrival: ambulatory Limitations: no limitations - History of Present Illness Initial Comments: 22-year-old female with past history of hyperthyroidism presents to the emergency department reporting some facial swelling. States that it is been going on for the past several months. She will have an intermittent rash on her body with associated facial swelling. Current episode began yesterday. She went into an urgent care clinic did place her on steroids. She did not want to take any steroids and therefore has not been on any treatment. She admits to multiple new exposures. No new medications. Denies nausea or vomiting. No sensation that her airway is closing off. She does admit to some crusting to her left eye. No other alleviating, precipitating or modifying factors - Related Data Home Medications Medication Instructions Recorded Confirmed Metoprolol Succinate [Toprol XL] 200 mg PO DAILY 09/21/22 09/21/22 Norelgestromin/Ethin.estradiol 1 patch TRANSDERM Q7D 09/21/22 09/21/22 [Xulane 150-35 Mcg/Day Patch] Previous Rx's Medication Instructions Recorded methIMAzole 10 mg PO DAILY #30 tablet 06/08/22 Metoprolol Succinate (ER) [Toprol 200 mg PO DAILY #60 tab 09/21/22 XL] methIMAzole 10 mg PO DAILY #30 tablet 09/21/22 Polymyxin B-Trimeth Sulf Ophth 1 drops LEFT EYE Q4H #10 ml 10/26/22 [Polytrim Opthalmic] diphenhydrAMINE [Benadryl] 25 mg PO QID #30 capsule 10/26/22 methylPREDNISolone [Medrol Dose 0 mg PO DIRECTED #1 packet 10/26/22 Pack] Allergies Allergy/AdvReac Type Severity Reaction Status Date / Time latex AdvReac Rash/Hives Verified 10/26/22 01:07 Review of Systems ROS Statement: Those systems with pertinent positive or pertinent negative responses have been documented in the HPI. ROS Other: All systems not noted in ROS Statement are negative. Past Medical History Past Medical History: Thyroid Disorder Additional Past Medical History / Comment(s): unknown irregular heart beat History of Any Multi-Drug Resistant Organisms: None Reported Past Surgical History: Orthopedic Surgery Additional Past Surgical History / Comment(s): Right foot surgery Past Anesthesia/Blood Transfusion Reactions: No Reported Reaction Past Psychological History: Depression Smoking Status: Vaper Past Alcohol Use History: Occasional Past Drug Use History: None Reported - Past Family History Mother Family Medical History: Asthma, Thyroid Disorder Additional Family Medical History / Comment(s): chronic back pain, anemia General Exam Limitations: no limitations General appearance: alert, in no apparent distress Head exam: Present: atraumatic, normocephalic, normal inspection Eye exam: Present: PERRL, EOMI, periorbital swelling (to the left eye). Absent: scleral icterus, conjunctival injection ENT exam: Present: normal exam, mucous membranes moist Neck exam: Present: normal inspection. Absent: tenderness, meningismus, lymphadenopathy Respiratory exam: Present: normal lung sounds bilaterally. Absent: respiratory distress, wheezes, rales, rhonchi, stridor Cardiovascular Exam: Present: bradycardia, normal heart sounds. Absent: systolic murmur, diastolic murmur, rubs, gallop, clicks GI/Abdominal exam: Present: soft, normal bowel sounds. Absent: distended, tenderness, guarding, rebound, rigid Extremities exam: Present: normal inspection, full ROM, normal capillary refill. Absent: tenderness, pedal edema, joint swelling, calf tenderness Back exam: Present: normal inspection Neurological exam: Present: alert, oriented X3, CN II-XII intact Psychiatric exam: Present: normal affect, normal mood Skin exam: Present: warm, dry, intact, normal color. Absent: rash Course Vital Signs 10/26/22 10/26/22 00:51 01:09 Temperature 97.8 F Pulse Rate 53 L 51 L Respiratory 16 18 Rate Blood Pressure 120/84 123/75 O2 Sat by Pulse 99 99 Oximetry Medical Decision Making - Medical Decision Making Was pt. sent in by a medical professional or institution (, PA, SALES CORRESPONDENT, urgent care, hospital, or care home...) When possible be specific @ -No Did you speak to anyone other than the patient for history (EMS, parent, family, police, friend...)? What history was obtained from this source @ -No Did you review nursing and triage notes (agree or disagree)? Why? @ -I reviewed and agree with nursing and triage notes Were old charts reviewed (outside hosp., previous admission, EMS record, old EKG, old radiological studies, urgent care reports/EKG's, care home records)? Report findings @ - No old charts were reviewed Differential Diagnosis (chest pain, altered mental status, abdominal pain women, abdominal pain men, vaginal bleeding, weakness, fever, dyspnea, syncope, headache, dizziness, GI bleed, back pain, seizure, CVA, palpatations, mental health, musculoskeletal)? @ -allergic reaction, allergies, periorbital cellulitis EKG interpreted by me (3pts min.). @ -No X-rays interpreted by me (1pt min.). @ -No CT interpreted by me (1pt min.). @ -None done U/S interpreted by me (1pt. min.). @ -None done What testing was considered but not performed or refused? (CT, X-rays, U/S, labs)? Why? @ -None What meds were considered but not given or refused? Why? @ -None Did you discuss the management of the patient with other professionals (professionals i.e. , PA, SALES CORRESPONDENT, lab, RT, psych nurse, social sciences department chair, licensed marine engineer, teacher, jailer/training officer, embedded case manager)? Give summary @ -No Was smoking cessation discussed for >3mins.? @ -no Was critical care preformed (if so, how long)? @ -no Were there social determinants of health that impacted care today? How? (Homelessness, low income, unemployed, alcoholism, drug addiction, transportat ion, low edu. Level, literacy, decrease access to med. care, longterm, rehab)? @ -No Was there de-escalation of care discussed even if they declined (Discuss DNR or withdrawal of care, Hospice)? DNR status @ -No What co-morbidities impacted this encounter? (DM, HTN, Smoking, COPD, CAD, Cancer, CVA, ARF, Chemo, Hep., AIDS, mental health diagnosis, sleep apnea, morbid obesity)? @ -hyperthyroid Was patient admitted / discharged? Hospital course, mention meds given and route, prescriptions, significant lab abnormalities, going to OR and other pertinent info. @ -Upon arrival patient was placed in trauma 2. Thorough history and physical exam was performed. Patient has no oral swelling. Does have some mild swelling to the left eye. She is given a dose of Benadryl and Pepcid in the emergency department. I discussed diagnosis, differential and treatment options. The patient will be discharged home on Benadryl every 6 hours, a mitral dose steroid pack, Pepcid and polymyxin eye drops. Use medications as directed. Follow-up with bench patternmaker metal return to the emergency for any worsening symptoms for patient was agreeable discharged home in stable condition Undiagnosed new problem with uncertain prognosis? @ -yes Drug Therapy requiring intensive monitoring for toxicity (Heparin, Nitro, Insulin, Cardizem)? @ -No Were any procedures done? @ -No Diagnosis/symptom? @ -acute left eye swelling, possible conjunctivitis, possible allergic reaction Acute, or Chronic, or Acute on Chronic? @ -acute Uncomplicated (without systemic symptoms) or Complicated (systemic symptoms)? @ -complicated Side effects of treatment? @ -no Exacerbation, Progression, or Severe Exacerbation? @ -no Poses a threat to life or bodily function? How? (Chest pain, [place], [place], pneumonia, PE, COPD, DKA, ARF, appy, cholecystitis, CVA, Diverticulitis, Homicidal, Suicidal, threat to staff... and all critical care pts) @ -yes - if symptoms related to allergic reaction - EKG Data EKG Comments: EKG demonstrates sinus bradycardia with a rate of 51. OK interval 166. QRS 94. QTC of 414. No acute ST segment elevations or depressions Disposition Clinical Impression: Allergic reaction, Conjunctivitis Disposition: HOME SELF-CARE Condition: Stable Instructions (If sedation given, give patient instructions): General Allergic Reaction (ED) Additional Instructions: Please take Benadryl every 6 hours. Take the steroid pack as directed. Take Pepcid twice daily. Follow up with the bench patternmaker metal for further testing and return for any new or worsening symptoms Prescriptions: diphenhydrAMINE [Benadryl] 25 mg PO QID #30 capsule methylPREDNISolone [Medrol Dose Pack] 0 mg PO DIRECTED #1 packet Polymyxin B-Trimeth Sulf Ophth [Polytrim Opthalmic] 1 drops LEFT EYE Q4H #10 ml Is patient prescribed a controlled substance at d/c from ED?: No Referrals: Edi Pennington MD [Primary Care Provider] - 1-2 days Lynette Smith MD [STAFF PHYSICIAN] - 1-2 days Candace Hoffman MD [STAFF PHYSICIAN] - 1-2 days Time of Disposition: 02:34
== END 2022-10-26 03:02 | disposition home or self-care (01) ==
LOC: EC 00:32
DX: T78.40XA Allergy, unspecified, initial encounter (principal); H10.9 Unspecified conjunctivitis; F17.290 Nicotine dependence, other tobacco product, uncomplicated; Z91.040 Latex allergy status
CPT/HCPCS: 99283; 96374; 96375; J1200

== ENCOUNTER 2023-06-02 14:03 | Emergency (ER) | payer OTHER ==
[2023-06-02] MEDS ORDERED: DEXAMETHASONE SOD PHOSPHATE 10 MG/ML 1 ML VIAL IVP STA (15:43)
[2023-06-02] MEDS ORDERED: METOCLOPRAMIDE 5 MG/ML 2 ML VIAL IVP STA (15:43)
[2023-06-02] MEDS ORDERED: SODIUM CHLORIDE 0.9% 1,000 ML IV STA (15:43)
[2023-06-02] MEDS ORDERED: diphenhydrAMINE 50 MG/ML 1 ML VIAL IVP STA (15:43)
[2023-06-02] MEDS ORDERED: KETOROLAC 15 MG/ML 1 ML VIAL IVP STA (15:43)
[2023-06-02 16:11] LABS: HCT 42.3 % (34.0-46.0); HGB 14.3 gm/dL (11.4-16.0); MCH 29.6 pg (25.0-35.0); MCHC 33.7 g/dL (31.0-37.0); MCV 87.8 fL (80.0-100.0); Mean Platelet Volume 7.3; Platelet Count 248 k/uL (150-450); RBC 4.82 m/uL (3.80-5.40); RDW 12.5 % (11.5-15.5); WBC 8.6 k/uL (3.8-10.6)
--- NOTE | 2023-06-02 16:37 | ED ---
Headache HPI - General Chief Complaint: Headache Stated Complaint: Migraine,N/V Time Seen by Provider: 06/02/23 15:35 Source: patient, RN notes reviewed Mode of arrival: ambulatory Limitations: no limitations - History of Present Illness Initial Comments: Patient is a 23-year-old female presenting to the ER with a chief complaint of headache. Patient states she was seen at urgent care prior and they sent her here. Patient states she's been having this headache for about 3 days. She endorses her headache across her forehead and describes it as a pressure tension. Patient endorses some episodes of nausea and vomiting but none currently. Patient states she has a distant history of migraines but none recently. Patient denies any fevers, visual changes, sickness, chest pain, shortness of breath, abdominal pain. - Related Data Home Medications Medication Instructions Recorded Confirmed Metoprolol Succinate [Toprol XL] 200 mg PO DAILY 09/21/22 09/21/22 Norelgestromin/Ethin.estradiol 1 patch TRANSDERM Q7D 09/21/22 09/21/22 [Xulane 150-35 Mcg/Day Patch] Previous Rx's Medication Instructions Recorded methIMAzole 10 mg PO DAILY #30 tablet 06/08/22 Metoprolol Succinate (ER) [Toprol 200 mg PO DAILY #60 tab 09/21/22 XL] methIMAzole 10 mg PO DAILY #30 tablet 09/21/22 Polymyxin B-Trimeth Sulf Ophth 1 drops LEFT EYE Q4H #10 ml 10/26/22 [Polytrim Opthalmic] diphenhydrAMINE [Benadryl] 25 mg PO QID #30 capsule 10/26/22 methylPREDNISolone [Medrol Dose 0 mg PO DIRECTED #1 packet 10/26/22 Pack] Allergies Allergy/AdvReac Type Severity Reaction Status Date / Time latex AdvReac Rash/Hives Verified 10/26/22 01:07 Review of Systems ROS Statement: Those systems with pertinent positive or pertinent negative responses have been documented in the HPI. ROS Other: All systems not noted in ROS Statement are negative. Past Medical History Past Medical History: Thyroid Disorder Additional Past Medical History / Comment(s): unknown irregular heart beat History of Any Multi-Drug Resistant Organisms: None Reported Past Surgical History: Orthopedic Surgery Additional Past Surgical History / Comment(s): Right foot surgery Past Anesthesia/Blood Transfusion Reactions: No Reported Reaction Past Psychological History: Depression Smoking Status: Vaper Past Alcohol Use History: Occasional Past Drug Use History: None Reported - Past Family History Mother Family Medical History: Asthma, Thyroid Disorder Additional Family Medical History / Comment(s): chronic back pain, anemia General Exam Limitations: no limitations General appearance: alert, in no apparent distress Head exam: Present: atraumatic, normocephalic, normal inspection Eye exam: Present: normal appearance, PERRL, EOMI. Absent: scleral icterus, conjunctival injection, periorbital swelling Pupils: Present: normal accommodation ENT exam: Present: normal exam, mucous membranes moist Neck exam: Present: normal inspection. Absent: tenderness, meningismus, lymphadenopathy Respiratory exam: Present: normal lung sounds bilaterally. Absent: respiratory distress, wheezes, rales, rhonchi, stridor Cardiovascular Exam: Present: regular rate, normal rhythm, normal heart sounds. Absent: systolic murmur, diastolic murmur, rubs, gallop, clicks Course Vital Signs 06/02/23 14:15 Temperature 98.6 F Pulse Rate 79 Respiratory 16 Rate Blood Pressure 118/67 O2 Sat by Pulse 99 Oximetry Medical Decision Making - Medical Decision Making Was pt. sent in by a medical professional or institution (, PA, LOCAL OPERATOR, urgent care, hospital, or alf...) When possible be specific @ -No Did you speak to anyone other than the patient for history (EMS, parent, family, police, friend...)? What history was obtained from this source @ -No Did you review nursing and triage notes (agree or disagree)? Why? @ -I reviewed and agree with nursing and triage notes Were old charts reviewed (outside hosp., previous admission, EMS record, old EKG, old radiological studies, urgent care reports/EKG's, alf records)? Report findings @ -No old charts were reviewed Differential Diagnosis (chest pain, altered mental status, abdominal pain women, abdominal pain men, vaginal bleeding, weakness, fever, dyspnea, syncope, headache, dizziness, GI bleed, back pain, seizure, CVA, palpatations, mental health, musculoskeletal)? @ -Differential Headache: Migraine, tension, cluster, carbon monoxide, central venous thrombosis, pension karma temporal arteritis, acute closure glaucoma, intercranial hemorrhage, mastoiditis, sinusitis, head injury, this is not meant to be an all-inclusive list. EKG interpreted by me (3pts min.). @ -None X-rays interpreted by me (1pt min.). @ -None done CT interpreted by me (1pt min.). @ -None done U/S interpreted by me (1pt. min.). @ -None done What testing was considered but not performed or refused? (CT, X-rays, U/S, labs)? Why? @ -None What meds were considered but not given or refused? Why? @ -None Did you discuss the management of the patient with other professionals (professionals i.e. DrJenny, PA, LOCAL OPERATOR, lab, RT, psych nurse, social services, modeling director, teacher, environmental conservation officer, rn case manager hospice)? Give summary @ -No Was smoking cessation discussed for >3mins.? @ -No Was critical care preformed (if so, how long)? @ -No Were there social determinants of health that impacted care today? How? (Homelessness, low income, unemployed, alcoholism, drug addiction, transportation, low edu. Level, literacy, decrease access to med. care, [facility], rehab)? @ -No Was there de-escalation of care discussed even if they declined (Discuss DNR or withdrawal of care, Hospice)? DNR status @ -No What co-morbidities impacted this encounter? (DM, HTN, Smoking, COPD, CAD, Cancer, CVA, ARF, Chemo, Hep., AIDS, mental health diagnosis, sleep apnea, morbid obesity)? @ -None Was patient admitted / discharged? Hospital course, mention meds given and route, prescriptions, significant lab abnormalities, going to OR and other pertinent info. @ -[Discharge. Upon examination, patient had red flag symptoms. Patient r eceived IV Decadron, Benadryl, Toradol, Reglan and 1 L of fluid in the ER. Upon reevaluation patient stated she feels much better and is ready to go home. Return parameters were discussed. Patient to follow-up with PCP for further care. Patient will be discharged in stable condition patient expressed understanding of care plan.] Undiagnosed new problem with uncertain prognosis? @ -No Drug Therapy requiring intensive monitoring for toxicity (Heparin, Nitro, Insulin, Cardizem)? @ -No Were any procedures done? @ -No Diagnosis/symptom? @ -Headache Acute, or Chronic, or Acute on Chronic? @ -Acute Uncomplicated (without systemic symptoms) or Complicated (systemic symptoms)? @ -Uncomplicated Side effects of treatment? @ -No Exacerbation, Progression, or Severe Exacerbation? @ -No Poses a threat to life or bodily function? How? (Chest pain, [place], [place], pneumonia, PE, COPD, DKA, ARF, appy, cholecystitis, CVA, Diverticulitis, Homicidal, Suicidal, threat to staff... and all critical care pts) @ -No - Lab Data Result diagrams: 06/02/23 15:51 06/02/23 15:51 Lab Results 06/02/23 06/02/23 Range/Units 15:51 15:51 WBC 8.6 (3.8-10.6) k/uL RBC 4.82 (3.80-5.40) m/uL Hgb 14.3 (11.4-16.0) gm/dL Hct 42.3 (34.0-46.0) % MCV 87.8 (80.0-100.0) fL MCH 29.6 (25.0-35.0) pg MCHC 33.7 (31.0-37.0) g/dL RDW 12.5 (11.5-15.5) % Plt Count 248 (150-450) k/uL MPV 7.3 Sodium 137 (137-145) mmol/L Potassium 4.0 (3.5-5.1) mmol/L Chloride 105 (98-107) mmol/L Carbon Dioxide 21 L (22-30) mmol/L Anion Gap 11 mmol/L BUN 11 (7-17) mg/dL Creatinine 0.48 L (0.52-1.04) mg/dL Est GFR (CKD-EPI)AfAm >90 (>60 ml/min/1.73 sqM) Est GFR (CKD-EPI)NonAf >90 (>60 ml/min/1.73 sqM) Glucose 100 H (74-99) mg/dL Calcium 9.1 (8.4-10.2) mg/dL Total Bilirubin 0.7 (0.2-1.3) mg/dL AST 21 (14-36) U/L ALT 15 (4-34) U/L Alkaline Phosphatase 67 (38-126) U/L Total Protein 7.6 (6.3-8.2) g/dL Albumin 4.4 (3.5-5.0) g/dL Disposition Clinical Impression: Headache Disposition: HOME SELF-CARE Condition: Stable Instructions (If sedation given, give patient instructions): Acute Headache (ED) Additional Instructions: Please return to the Emergency Department if symptoms worsen or any other conc erns. Is patient prescribed a controlled substance at d/c from ED?: No Referrals: Edi Pennington MD [Primary Care Provider] - 1-2 days Time of Disposition: 17:03
[2023-06-02 16:42] LABS: ALT 15 U/L (4-34); AST 21 U/L (14-36); African American GFR (CKD) >90 (>60 ml/min/1.73 sqM); Albumin 4.4 g/dL (3.5-5.0); Alkaline Phosphatase 67 U/L (38-126); Anion Gap 11 mmol/L; Blood Urea Nitrogen 11 mg/dL (7-17); Calcium 9.1 mg/dL (8.4-10.2); Carbon Dioxide 21 mmol/L (22-30); Chloride 105 mmol/L (98-107); Glucose 100 mg/dL (74-99); Non-African American GFR(CKD) >90 (>60 ml/min/1.73 sqM); Sodium 137 mmol/L (137-145); Total Bilirubin 0.7 mg/dL (0.2-1.3); Total Protein 7.6 g/dL (6.3-8.2)
[2023-06-02 17:30] VITALS: BP 108/69; PULSE 68; RESP 18; TEMP 97.9
== END 2023-06-02 17:29 | disposition home or self-care (01) ==
LOC: EC 14:03
DX: R51.9 Headache, unspecified (principal); F17.290 Nicotine dependence, other tobacco product, uncomplicated; Z91.040 Latex allergy status
CPT/HCPCS: 36415; 80053; 85027; 99283; 96374; 96375 ×3; 96361; J1200; J1100; J2765; J1885

== ENCOUNTER 2023-07-16 20:19 | Emergency (ER) | payer OTHER ==
--- NOTE | 2023-07-16 21:27 | XR ---
EXAMINATION TYPE: XR chest 1V DATE OF EXAM: 07/16/2023 9:02 PM CLINICAL INDICATION:Female, 23 years old with history of cough; [facility] COMPARISON: 09/21/2022. TECHNIQUE: XR chest 1V Frontal view of the chest. FINDINGS: Lungs/Pleura: There is no evidence of pleural effusion, focal consolidation, or pneumothorax. Pulmonary vascularity: Unremarkable. Heart/mediastinum: Cardiomediastinal silhouette is unremarkable. Musculoskeletal: No acute osseous pathology. IMPRESSION: No acute cardiopulmonary disease/process.
--- NOTE | 2023-07-16 22:02 | ED ---
General Adult HPI - General Chief complaint: Upper Respiratory Infection Stated complaint: Body aches, stuffed nose Source: patient Mode of arrival: ambulatory Limitations: no limitations - History of Present Illness Initial comments: 23-year-old female presenting to the ED with a chief complaint of upper respiratory symptoms. Patient states for the past 2 days has had rhinorrhea, congestion, cough, myalgias, and had not dyspnea. Denies fever. No chest pain or shortness of breath. No other complaints. - Related Data Home Medications Medication Instructions Recorded Confirmed Metoprolol Succinate [Toprol XL] 200 mg PO DAILY 09/21/22 09/21/22 Norelgestromin/Ethin.estradiol 1 patch TRANSDERM Q7D 09/21/22 09/21/22 [Xulane 150-35 Mcg/Day Patch] Previous Rx's Medication Instructions Recorded methIMAzole 10 mg PO DAILY #30 tablet 06/08/22 Metoprolol Succinate (ER) [Toprol 200 mg PO DAILY #60 tab 09/21/22 XL] methIMAzole 10 mg PO DAILY #30 tablet 09/21/22 Polymyxin B-Trimeth Sulf Ophth 1 drops LEFT EYE Q4H #10 ml 10/26/22 [Polytrim Opthalmic] diphenhydrAMINE [Benadryl] 25 mg PO QID #30 capsule 10/26/22 methylPREDNISolone [Medrol Dose 0 mg PO DIRECTED #1 packet 10/26/22 Pack] Allergies Allergy/AdvReac Type Severity Reaction Status Date / Time latex AdvReac Rash/Hives Verified 10/26/22 01:07 Review of Systems ROS Statement: Those systems with pertinent positive or pertinent negative responses have been documented in the HPI. ROS Other: All systems not noted in ROS Statement are negative. Past Medical History Past Medical History: Thyroid Disorder Additional Past Medical History / Comment(s): unknown irregular heart beat History of Any Multi-Drug Resistant Organisms: None Reported Past Surgical History: Orthopedic Surgery Additional Past Surgical History / Comment(s): Right foot surgery Past Anesthesia/Blood Transfusion Reactions: No Reported Reaction Past Psychological History: Depression Smoking Status: Vaper Past Alcohol Use History: Occasional Past Drug Use History: None Reported - Past Family History Mother Family Medical History: Asthma, Thyroid Disorder Additional Family Medical History / Comment(s): chronic back pain, anemia General Exam Limitations: no limitations General appearance: alert, in no apparent distress Neck exam: Present: normal inspection Respiratory exam: Present: normal lung sounds bilaterally Cardiovascular Exam: Present: regular rate, normal rhythm GI/Abdominal exam: Present: soft Neurological exam: Present: alert, oriented X3 Course Vital Signs 07/16/23 20:42 Temperature 98.5 F Pulse Rate 78 Respiratory 18 Rate Blood Pressure 112/70 O2 Sat by Pulse 100 Oximetry Medical Decision Making - Medical Decision Making Was pt. sent in by a medical professional or institution (, [facility], [employer], urgent care, hospital, or [facility]...) When possible be specific @ -No Did you speak to anyone other than the patient for history (EMS, parent, family, police, friend...)? What history was obtained from this source @ -No Did you review nursing and triage notes (agree or disagree)? Why? @ -I reviewed and agree with nursing and triage notes Were old charts reviewed (outside hosp., previous admission, EMS record, old EKG, old radiological studies, urgent care reports/EKG's, [facility] records)? Report findings @ -No old charts were reviewed Differential Diagnosis (chest pain, altered mental status, abdominal pain women, abdominal pain men, vaginal bleeding, weakness, fever, dyspnea, syncope, headache, dizziness, GI bleed, back pain, seizure, CVA, palpatations, mental health, musculoskeletal)? @ -Differential Dyspnea: Coronary syndrome, arrhythmia, tamponade, asthma, COPD, pulmonary embolism, pneumonia, pneumothorax, pulmonary effusion, anaphylaxis, diabetic ketoacidosis, flailed chest, pulmonary contusion, diaphragmatic rupture, anemia, neuromuscular, this is not meant to be an all-inclusive list. EKG interpreted by me (3pts min.). @ -None X-rays interpreted by me (1pt min.). @ -Chest x-ray interpreted by me shows no evidence of pneumonia or other acute process. CT interpreted by me (1pt min.). @ -None done U/S interpreted by me (1pt. min.). @ -None done What testing was considered but not performed or refused? (CT, X-rays, U/S, labs)? Why? @ -None What meds were considered but not given or refused? Why? @ -None Did you discuss the management of the patient with other professionals (professionals i.e. , PA, P[employer] P[employer]ING MACHINE TENDER, lab, RT, psych nurse, school social worker, clinical nurse manager, teacher, executive vice president and chief operating officer, community case manager)? Give summary @ -No Was smoking cessation discussed for >3mins.? @ -No Was critical care preformed (if so, how long)? @ -No Were there social determinants of health that impacted care today? How? (Homelessness, low income, unemployed, alcoholism, drug addiction, transportation, low edu. Level, literacy, decrease access to med. care, shelter, rehab)? @ -No Was there de-escalation of care discussed even if they declined (Discuss DNR or withdrawal of care, Hospice)? DNR status @ -No What co-morbidities impacted this encounter? (DM, HTN, Smoking, COPD, CAD, Cancer, CVA, ARF, Chemo, Hep., AIDS, mental health diagnosis, sleep apnea, morbid obesity)? @ -None Was patient admitted / discharged? Hospital course, mention meds given and route, prescriptions, significant lab abnormalities, going to OR and other pertinent info. @ -Discharge 23-year-old female presents to the ED with upper respiratory symptoms. Chest x- ray shows no evidence of pneumonia other acute process. Serology testing shows patient is COVID positive. At this time, vital signs stable afebrile. Discharged home in stable condition advised follow-up with her PCP. Discussed return precautions with patient who verbalized agreement. Undiagnosed new problem with uncertain prognosis? @ -No Drug Therapy requiring intensive monitoring for toxicity (Heparin, Nitro, Insulin, Cardizem)? @ -No Were any procedures done? @ -No Diagnosis/symptom? @ -COVID Acute, or Chronic, or Acute on Chronic? @ -Acute Uncomplicated (without systemic symptoms) or Complicated (systemic symptoms)? @ -Uncomplicated Side effects of treatment? @ -No Exacerbation, Progression, or Severe Exacerbation? @ -No Poses a threat to life or bodily function? How? (Chest pain, [place], [place], pneumonia, PE, COPD, DKA, ARF, appy, cholecystitis, CVA, Diverticulitis, Homicidal, Suicidal, threat to staff... and all critical care pts) @ -No - Lab Data Lab Results 07/16/23 Range/Units 20:45 Influenza Type A (PCR) Not Detected (Not Detectd) Influenza Type B (PCR) Not Detected (Not Detectd) RSV (PCR) Not Detected (Not Detectd) SARS-CoV-2 (PCR) Detected A (Not Detectd) Disposition Clinical Impression: COVID-19 Disposition: HOME SELF-CARE Condition: Good Additional Instructions: Please return to the Emergency Department if symptoms worsen or any other concerns. Use [id number] medications as needed for symptoms. Follow up with your primary care provider. Is patient prescribed a controlled substance at d/c from ED?: No Referrals: Edi Pennington MD [Primary Care Provider] - 1-2 days Time of Disposition: 22:07
[2023-07-16 22:50] VITALS: BP 109/74; PULSE 70; RESP 16; TEMP 98.4
== END 2023-07-16 22:28 | disposition home or self-care (01) ==
LOC: EC 20:19
DX: U07.1 COVID-19 (principal); F32.A Depression, unspecified; F17.290 Nicotine dependence, other tobacco product, uncomplicated; Z91.040 Latex allergy status; Z79.899 Other long term (current) drug therapy
CPT/HCPCS: 71045; 87636; 99283

== ENCOUNTER 2024-09-26 09:54 | Emergency (ER) | payer OTHER ==
[2024-09-26 10:19] VITALS: BP 122/85; PULSE 109; RESP 20; TEMP 98
--- NOTE | 2024-09-26 12:33 | ED ---
Female Urogenital HPI - General Chief complaint: Urogenital Stated complaint: side pain, sweats, body aches Time Seen by Provider: 09/26/24 10:12 Source: patient, RN notes reviewed Mode of arrival: ambulatory Limitations: no limitations - History of Present Illness Initial comments: Quick [id number] female presents emergency department complaint of flank pain. Patient states she has some sweats she has had recent UTI symptoms. - Related Data Home Medications Medication Instructions Recorded Confirmed Metoprolol Succinate [Toprol XL] 200 mg PO DAILY 09/21/22 09/21/22 Norelgestromin/Ethin.estradiol 1 patch TRANSDERM Q7D 09/21/22 09/21/22 [Xulane 150-35 Mcg/Day Patch] Previous Rx's Medication Instructions Recorded methIMAzole 10 mg PO DAILY #30 tablet 06/08/22 Metoprolol Succinate (ER) [Toprol 200 mg PO DAILY #60 tab 09/21/22 XL] methIMAzole 10 mg PO DAILY #30 tablet 09/21/22 Polymyxin B-Trimeth Sulf Ophth 1 drops LEFT EYE Q4H #10 ml 10/26/22 [Polytrim Opthalmic] diphenhydrAMINE [Benadryl] 25 mg PO QID #30 capsule 10/26/22 methylPREDNISolone [Medrol Dose 0 mg PO DIRECTED #1 packet 10/26/22 Pack] Allergies Allergy/AdvReac Type Severity Reaction Status Date / Time latex AdvReac Rash/Hives Verified 09/26/24 10:20 Review of Systems ROS Statement: Those systems with pertinent positive or pertinent negative responses have been documented in the HPI. ROS Other: All systems not noted in ROS Statement are negative. Past Medical History Past Medical History: Thyroid Disorder Additional Past Medical History / Comment(s): unknown irregular heart beat History of Any Multi-Drug Resistant Organisms: None Reported Past Surgical History: Orthopedic Surgery Additional Past Surgical History / Comment(s): Right foot surgery Past Anesthesia/Blood Transfusion Reactions: No Reported Reaction Past Psychological History: Depression Smoking Status: Vaper Past Alcohol Use History: Occasional Past Drug Use History: None Reported - Past Family History Mother Family Medical History: Asthma, Thyroid Disorder Additional Family Medical History / Comment(s): chronic back pain, anemia General Exam - General Exam Comments Initial Comments: Visual Physical Exam Vital signs reviewed General: Well-appearing, nontoxic, no acute distress. Head: Normocephalic, atraumatic Eyes: PERRLA, EOMI ENT: Airway patent Chest: Nonlabored breathing Skin: No visual rash, normal skin tone Neuro: Alert and oriented 3 Musculoskeletal: No gross abnormalities Limitations: no limitations Course Vital Signs 09/26/24 10:17 Temperature 98 F Pulse Rate 109 H Respiratory 20 Rate Blood Pressure 122/85 O2 Sat by Pulse 98 Oximetry Medical Decision Making - Medical Decision Making I completed the quick note portion of this chart signed Stephen Donis PA-C Patient left against medical vice in the waiting room Disposition Clinical Impression: Abdominal pain Disposition: LEFT AGAINST MEDICAL ADVICE Referrals: None,Stated [Primary Care Provider] - 1-2 days Time of Disposition: 12:33
== END 2024-09-26 12:35 | disposition left against medical advice (07) ==
LOC: EC 09:54
DX: R10.11 Right upper quadrant pain (principal); F17.290 Nicotine dependence, other tobacco product, uncomplicated; Z53.29 Procedure and treatment not carried out because of patient's decision for other reasons
CPT/HCPCS: 99283